=== PATIENT | female | born 1985 | race Caucasian/White ===

== ENCOUNTER 2022-12-28 11:35 | Emergency (ER) | payer OTHER ==
[~2022-12-28] VITALS: Ht 162.6 cm; Wt 108.9 kg
[2022-12-28 11:48] VITALS: BP 157/83
--- NOTE | 2022-12-28 12:11 | NUR ---
PT SWABBED AND SENT TO LAB
[2022-12-28] MEDS ORDERED: SUD30 PO (13:02)
[2022-12-28] MEDS ORDERED: IBUP-2213 PO (13:02)
[2022-12-28] MEDS ORDERED: PROM118S5 PO (13:02)
--- NOTE | 2022-12-28 13:09 | NUR ---
Patient discharged with v/s stable. Written and verbal after care instructions given and explained. Patient alert, oriented and verbalized understanding of instructions. Ambulatory with steady gait. All questions addressed prior to discharge. ID band removed. Patient advised to follow up with PMD. Rx of MOTRIN SUDAFED given. Patient educated on indication of medication including possible reaction and side effects. Opportunity to ask questions provided and answered.
== END 2022-12-28 13:09 | disposition home or self-care (01) ==
LOC: MED 11:35
DX: J32.9 Chronic sinusitis, unspecified (principal); Z20.822 Contact with and (suspected) exposure to COVID-19
CPT/HCPCS: 99283

== ENCOUNTER 2023-01-23 15:34 | Emergency (ER) | payer OTHER ==
[~2023-01-23] VITALS: Ht 162.6 cm; Wt 99.8 kg
[~2023-01-23 15:34] MED LIST: IBUP-2213 PO; PROM118S5 PO; SUD30 PO
[2023-01-23 16:14] VITALS: BP 171/88
[2023-01-23] MEDS ORDERED: AMOX-999 PO (16:50)
[2023-01-23] MEDS ORDERED: SUD30 PO (16:50)
[2023-01-23] MEDS ORDERED: IBUP-1842 PO (16:50)
[2023-01-23 17:17] VITALS: BP 171/88
--- NOTE | 2023-01-23 17:19 | NUR ---
Patient discharged with v/s stable. Written and verbal after care instructions given and explained. Patient alert, oriented and verbalized understanding of instructions. Ambulatory with steady gait. All questions addressed prior to discharge. ID band removed. Patient advised to follow up with PMD. Rx of SUDAFED given. Patient educated on indication of medication including possible reaction and side effects. Opportunity to ask questions provided and answered.
== END 2023-01-23 17:45 | disposition home or self-care (01) ==
LOC: MED 15:34
DX: J32.9 Chronic sinusitis, unspecified (principal); Z98.51 Tubal ligation status; Z79.899 Other long term (current) drug therapy; Z79.1 Long term (current) use of non-steroidal anti-inflammatories (NSAID); Z79.2 Long term (current) use of antibiotics
CPT/HCPCS: 99283

== ENCOUNTER 2023-02-05 03:45 | Emergency (ER) | payer OTHER ==
[~2023-02-05] VITALS: Ht 165.1 cm; Wt 106.6 kg
[~2023-02-05 03:45] MED LIST changes: +AMOX-999 PO; +IBUP-1842 PO
[2023-02-05 03:49] VITALS: BP 129/86
--- NOTE | 2023-02-05 03:52 | NUR ---
to lobby a/w bed ambulatory
--- NOTE | 2023-02-05 04:07 | NUR ---
pt to bed #11
--- NOTE | 2023-02-05 04:07 | NUR ---
c/o epigastric abd pain 7/10 and nausea, vomiting, diarrhea that per pt, started last night. denies any pmhx. denies any allergies.
[2023-02-05] MEDS ORDERED: ONDANSETRON 4 MG/2 ML VIAL IVP ONE (04:40)
[2023-02-05 05:13] LABS: BASOPHILS % (AUTO) 0.3 % (0.0-2.0); EOSINOPHILS # (AUTO) 0.1 K/uL (0-0.4); HEMATOCRIT 40.2 % (36-48); HEMOGLOBIN 13.4 g/dL (12.0-16.0); LYMPHOCYTES % (AUTO) 9.8 % (20.5-51.1); MEAN CORPUSCULAR HEMOGLOBIN 28 pg (27-31); MEAN CORPUSCULAR HGB CONC 33 g/dL (33-37); MEAN CORPUSCULAR VOLUME 84.4 fL (80-94); MONOCYTES # (AUTO) 0.6 K/uL (0.8-1.0); MONOCYTES % (AUTO) 5.4 % (1.7-9.3); NEUTROPHILS # (AUTO) 8.8 K/uL (1.8-7.7); NEUTROPHILS % (AUTO) 83.5 % (42.2-75.2); PLATELET COUNT (AUTO) 295 K/uL (140-450); RED BLOOD CELL COUNT(AUTO) 4.76 MIL/uL (4.20-5.40); RED CELL DISTRIBUTION WIDTH 13.4 % (11.6-13.7); WHITE BLOOD COUNT (AUTO) 10.6 K/uL (4.8-10.8)
[2023-02-05] MEDS ORDERED: NACL 0.9% 1,000 ML IV ONE (05:20)
[2023-02-05] MEDS ORDERED: KETOROLAC 30 MG/ML VIAL IVP ONE (05:20)
--- NOTE | 2023-02-05 05:30 | NUR ---
Urine collected sent to lab
[2023-02-05 05:33] LABS: APPEARANCE,URINE SL CLOUDY (CLEAR); BILIRUBIN,URINE NEGATIVE (NEGATIVE); BLOOD, URINE NEGATIVE (NEGATIVE); COLOR,URINE YELLOW (YELLOW); LEUKOCYTE ESTERASE ,URINE TRACE (NEGATIVE); NITRITE, URINE NEGATIVE (NEGATIVE); UGLUCOSE NEGATIVE (NEGATIVE)
[2023-02-05 05:43] LABS: RBC,URINE 0-5 /HPF (0-5)
[2023-02-05 05:44] LABS: YEAST,URINE Many /HPF (None Seen)
[2023-02-05 05:45] LABS: ALBUMIN 3.4 g/dL (3.4-5.0); ANION GAP 9.4 (8-16); CARBON DIOXIDE 29.9 mmol/L (21-32); CREATININE 0.7 mg/dL (0.6-1.3); POTASSIUM 4.3 mmol/L (3.5-5.1); TOTAL BILIRUBIN 0.2 mg/dL (0.0-1.0)
[2023-02-05] MEDS ORDERED: ONDA-188 PO (07:05)
[2023-02-05] MEDS ORDERED: MAG-27 PO (07:05)
[2023-02-05] MEDS ORDERED: BEN10 PO (07:05)
[2023-02-05 07:13] VITALS: BP 121/70
--- NOTE | 2023-02-05 07:13 | NUR ---
Patient discharged with v/s stable. Written and verbal after care instructions given and explained. New Rx for Bentyl, Mylanta, Zofran. Patient verbalized understanding. Ambulatory with steady gait. All questions addressed prior to discharge. Advised to follow up with PMD.
== END 2023-02-05 07:13 | disposition home or self-care (01) ==
LOC: MED 03:45
DX: R11.2 Nausea with vomiting, unspecified (principal); R19.7 Diarrhea, unspecified; Z79.899 Other long term (current) drug therapy; Z98.890 Other specified postprocedural states
CPT/HCPCS: 36415; 80053; 81001; 81025; 83690; 85025; 87086; 96361; 96374; 96375; 99284; J1885; J2405; J7030

== ENCOUNTER 2023-10-06 14:55 | Emergency (ER) | payer OTHER ==
[~2023-10-06] VITALS: Ht 165.1 cm; Wt 114.8 kg
[~2023-10-06 14:55] MED LIST changes: +BEN10 PO; +MAG-27 PO; +ONDA-188 PO
[2023-10-06 15:14] VITALS: BP 146/78; PULSE 100; RESP 18; TEMP 98.1; O2SAT 99
[2023-10-06] MEDS ORDERED: PROM118S5 PO (15:42)
[2023-10-06] MEDS ORDERED: ACET-10509 PO (15:42)
[2023-10-06 16:15] LABS: FLU A ANTIGEN negative (NEGATIVE); FLU B ANTIGEN negative (NEGATIVE)
== END 2023-10-06 15:49 | disposition home or self-care (01) ==
LOC: MED 14:55
DX: J06.9 Acute upper respiratory infection, unspecified (principal); Z20.822 Contact with and (suspected) exposure to COVID-19; Z79.899 Other long term (current) drug therapy
CPT/HCPCS: 81025; 99283

== ENCOUNTER 2024-01-13 13:09 | Emergency (ER) | payer OTHER ==
[~2024-01-13] VITALS: Ht 162.6 cm; Wt 115.2 kg
[~2024-01-13 13:09] MED LIST changes: +ACET-10509 PO
[2024-01-13 13:24] VITALS: BP 124/78; PULSE 87; RESP 18; TEMP 96.8; O2SAT 98
[2024-01-13] MEDS ORDERED: AMOX-1230 PO (14:13)
[2024-01-13 14:18] LABS: FLU A ANTIGEN negative (NEGATIVE); FLU B ANTIGEN negative (NEGATIVE)
== END 2024-01-13 14:22 | disposition home or self-care (01) ==
LOC: MED 13:09
DX: J32.9 Chronic sinusitis, unspecified (principal); Z20.822 Contact with and (suspected) exposure to COVID-19; Z79.899 Other long term (current) drug therapy; Z91.013 Allergy to seafood
CPT/HCPCS: 99283